=== PATIENT | male | born 1995 | race Caucasian/White ===

== ENCOUNTER 2017-01-05 10:16 | Emergency (ER) | payer OTHER ==
[2017-01-05] MEDS ORDERED: LIDOCAINE HCL 1% 20 ML VIAL ONE (10:44)
[2017-01-05] MEDS ORDERED: DIPH,PERTUSS(ACELL),TET VAC/PF 0.5 ML VIAL IM ONE (11:09)
--- NOTE | 2017-01-05 11:20 | ER NURSING DOCUMENTATION ---
Nurse's Notes [facility] Name:Ravi Munguia Age:21 yrs Sex:Male :1995 Arrival Date:01/05/2017 Time:10:16 Bed1 Private MD: Diagnosis:Finger Laceration Presentation: 01/05 10:18 Acuity: FRANSICO 4 lc 10:23 Presenting complaint: Patient states: CUT LEFT INDEX FINGER ON A HINGE AND HAS 1 CM lc LAC. NO BONY TENDERNESS, CSM INTACT. DENIES OTHER INJURY. Transition of care: patient was not received from another setting of care. Notified ED Physician of patient's arrival and CC. 10:23 Method Of Arrival: Private Vehicle Triage Assessment: 10:26 General: Appears in no apparent distress, Behavior is cooperative, pleasant. Pain: lc Complains of pain in dorsal aspect of proximal phalanx of left index finger Pain At worst was 2 out of 10 on a pain scale. Quality of pain is described as dull, Pain began 30 min ago. Musculoskeletal: Circulation, motion, and sensation intact Capillary refill < 3 seconds Range of motion intact in all extremities. Injury Description: Laceration sustained to dorsal aspect of proximal phalanx of left index finger is clean, 0.5 to 2.5 cm long, was sustained less than 30 minutes ago. is bleeding no active bleeding noted. Historical: - Allergies: No known drug Allergies; - Home Meds: 1. None - PMHx: None; - PSHx: None; - Tetanus: < 10 years. - Ebola Screening: : Patient negative for fever greater than or equal to 101.5 degrees Fahrenheit, and additional compatible Ebola Virus Disease symptoms. Patient denies exposure to infectious person. Patient denies travel to an Ebola-affected area in the 21 days before illness onset. No symptoms or risks identified at this time. . - Immunization history: Flu Vaccine >1 year. - Social history: Smoking status: Patient states former smoker of tobacco. Screenin:28 Infectious Disease Risk None. Abuse screen: Denies threats or abuse. Denies injuries lc from another. Nutritional screening: No deficits noted. Assessment: 10:28 See Triage Assessment done by same RN. Vital Signs: 10:23 BP 150 / 81; Pulse 97; Resp 16; Temp 98.7(O); Pulse Ox 93% on R/A; Weight 65.77 kg (R); arc Height 5 ft. 10 in. (177.80 cm) (R); Pain 2/10; 11:12 Pain 0/10; lc 10:23 Body Mass Index 20.81 (65.77 kg, 177.80 cm) arc ED Course: 10:17 Patient arrived in ED. lm3 10:18 Ute Renee RN is Primary Nurse. 10:18 Triage completed. 10:28 Valuables Remains with patient Patient has correct armband on for positive lc identification. Placed in gown. Bed in low position. Call light in reach. Adult w/ patient. 11:06 Golden Peralta MD is Attending Physician. tl1 11:08 Assist Provider Assist provider with laceration repair on dorsal aspect of proximal lc phalanx of left index finger that was 2.5 cm. or less using sutures. Set up tray. Performed by Golden Peralta MD Dressed with band aid, Neosporin, Patient tolerated well. Wound care was cleaned with soap and water, Irrigation Normal Saline. Administered Medications: 11:00 Drug: Adacel 0.5 ml; {Manufacturing Specialist: Sanofi Paste[employer] ([employer]). Exp: 07/21/2018. Lot #: [id number]. } Route: IM; Site: left deltoid; 11:18 Follow up: Response: No adverse reaction Outcome: 11:08 Discharge ordered by . tl1 11:12 Discharged to home ambulatory, with friend. 11:12 Condition: good 11:12 Discharge Assessment: Patient awake, alert and oriented x 3. No cognitive and/or functional deficits noted. Patient verbalized understanding of disposition instructions. 11:12 Discharge instructions given to patient, Instructed on discharge instructions, follow up and referral plans. wound care, Demonstrated understanding of instructions. 11:19 Patient left the ED. 01/06 19:30 Discharge F/U Call: Spoke with: patient. Overall Care on a scale of 1-10 with 10 nf being the best care, you rate our care as: the rating of 10. Further F/U necessary? None needed Signatures: Ute Renee, Marisa Faust RN, RN RN nf Leigh, Tom, MD MD tl1 Mattie, Vianca, Reg [facility] Claudia Cordova 3
--- NOTE | 2017-01-07 11:19 | ER PHYSICIAN DOCUMENTATION ---
Physician Documentation [facility] Name:Ravi Munguia Age:21 yrs Sex:Male :1995 Arrival Date:01/05/2017 Time:10:16 Bed1 Private MD: Golden Brown Disposition: 01/05 11:30 Chart complete. tl1 Disposition: 01/05/17 11:08 Discharged to Home/Self Care. Impression: Finger Laceration. - Condition is Good. - Discharge Instructions: FINGER LACERATION - LACERATION, Hand. - Medical Reconciliation form form. - Follow up: Private Physician; When: 10 - 14 days; Reason: Staple/Suture removal. - Problem is new. - Symptoms have improved. HPI: 10:40 This 21 yrs old Male presents to ER via Private Vehicle with complaints of tl1 Finger Injury. 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 Denies distal N/W/T or any loss of extension of the finger. He has had some immunizations, apparently, including a tetanus booster about 7 years ago. We called his mother to get a list of immunizations but were unable to get one. He has no other complaint.. Historical: - Allergies: No known drug Allergies; - Home Meds: 1. None - PMHx: None; - PSHx: None; - Tetanus: < 10 years. - Ebola Screening: : Patient negative for fever greater than or equal to 101.5 degrees Fahrenheit, and additional compatible Ebola Virus Disease symptoms. Patient denies exposure to infectious person. Patient denies travel to an Ebola-affected area in the 21 days before illness onset. No symptoms or risks identified at this time. . - Immunization history: Flu Vaccine >1 year. - Social history: Smoking status: Patient states former smoker of tobacco. ROS: 10:45 MS/extremity: Positive for laceration. tl1 10:45 All other systems are negative. Exam: 10:45 Constitutional: This is a well developed, well nourished patient who is awake, alert, tl1 and in no acute distress. 10:45 Head/Face: Normocephalic, atraumatic. tl1 10:45 Cardiovascular: Rate: normal. 10:45 Respiratory: Respirations: normal. 10:45 Musculoskeletal/extremity: Extremities: grossly normal except: noted in the dorsal aspect of proximal phalanx of left index finger: laceration, 1 cm long, very superficial; just through the dermis into thte SQ tissue. No tendon, joint or neurovascular involvement., ROM: no acute changes, Circulation is intact in all extremities. Sensation intact. 10:45 Skin: Exam negative for acute changes, except as above. Vital Signs: 10:23 BP 150 / 81; Pulse 97; Resp 16; Temp 98.7(O); Pulse Ox 93% on R/A; Weight 65.77 kg (R); arc Height 5 ft. 10 in. (177.80 cm) (R); Pain 2/10; 11:12 Pain 0/10; lc 10:23 Body Mass Index 20.81 (65.77 kg, 177.80 cm) arc Laceration: 10:45 Wound Repair of 1cm ( 0.4in ) subcutaneous laceration to dorsal aspect of proximal tl1 phalanx of left index finger. Linear shaped.. Distal neuro/vascular/tendon intact. Anesthesia: Wound infiltrated with 2 mls of 1% lidocaine. Wound prep: Extensive cleansing, Wound explored extensively, Copious irrigation. Skin closed with 3 4-0 Ethilon using sterile technique. Dressed with Bacitracin, 4x4's, Kerlix. Patient tolerated well. MDM: 10:45 Differential diagnosis: laceration. Data reviewed: vital signs, nurses notes, and as a tl1 result, I will discharge patient. Counseling: I had a detailed discussion with the patient and/or guardian regarding: the historical points, exam findings, and any diagnostic results supporting the discharge/admit diagnosis, the need for outpatient follow up, to return to the emergency department if symptoms worsen or persist or if there are any questions or concerns that arise at home. Response to treatment: the patient's symptoms have markedly improved after treatment, and as a result, I will discharge patient. 11:06 Patient medically screened. tl1 Dispensed Medications: 11:00 Drug: Adacel 0.5 ml; {[employer] Consultant: Sanofi Pasteur ([employer]). Exp: 07/21/2018. Lot #: [id number]. } Route: IM; Site: left deltoid; 11:18 Follow up: Response: No adverse reaction Signatures: Ute Renee, FRANCISCO JAVIER RN lc Golden Peralta MD MD tl1
== END 2017-01-05 11:19 | disposition home or self-care (01) ==
LOC: ER 10:16
DX: S61.211A Laceration without foreign body of left index finger without damage to nail, initial encounter (principal); W23.0XXA Caught, crushed, jammed, or pinched between moving objects, initial encounter; Z23 Encounter for immunization
CPT/HCPCS: 12041; 90471; 99283